=== PATIENT | male | born 1950 | race African-American/Black ===

== ENCOUNTER 2024-11-11 11:38 | Emergency (ER) | payer OTHER ==
[~2024-11-11] VITALS: Ht 182.9 cm; Wt 81.0 kg
[2024-11-11 11:44] VITALS: TEMP 37; O2SAT 96
[2024-11-11 12:09] LABS: BG BASE EXCESS 3.0 mmol/L (-2.0-3.0); BG CARBOXYHEMOGLOBIN 0.7 % (0.5-1.5); BG DEOXYHEMOGLOBIN 2.7 % (0.0-5.0); BG FLOW(L/min) 0 L/min; BG FRACTION INSPIRED OXYGEN 21; BG HCO3 ACT 27.8 mmol/L (21.0-28.0); BG METHEMOGLOBIN 0.0 % (0.5-1.5); BG OXYGEN SATURATION 97.3 % (94.0-98.0); BG OXYHEMOGLOBIN 96.6 % (94.0-98.0); BG PCO2 43.5 mmHg (35.0-48.0); BG PH 7.423 (7.350-7.450); BG PO2 94.0 mmHg (83.0-108.0); BG SAMPLE SITE RIGHT RADIAL; BG TOTAL HEMOGLOBIN 11.3 g/dL (13.5-17.5); BG VENT MODE ROOM AIR
[2024-11-11] MEDS: IOHEXOL-350 100 ML BOTTLE ONE (12:15)
[2024-11-11 12:22] LABS: BASOPHILS % 0.7 % (0.0-2.0); EOSINOPHILS % 4.1 % (0.0-5.0); HEMATOCRIT. 31.8 % (42.0-52.0); HEMOGLOBIN. 10.3 g/dL (14.0-18.0); LYMPHOCYTES % 32.9 % (20.0-50.0); MEAN PLATELET VOLUME 9.2 fl (7.4-10.4); MONOCYTES % 9.5 % (2.0-8.0); NEUTROPHILS % 52.8 % (40.0-76.0); PLATELET 132 x1000/uL (130-400); RED BLOOD CELL COUNT 3.47 mill/uL (4.7-6.1); RED CELL DISTRIBUTION WIDTH 13.0 % (11.6-14.6)
[2024-11-11 12:38] LABS: INR 1.0
[2024-11-11 12:40] LABS: CREATININE 0.9 mg/dL (0.6-1.3); ETHANOL BLOOD < 10 mg/dL (<10); TROPONIN I HIGH SENSITIVITY < 4 ng/L (3.0-53); UREA NITROGEN BLOOD 6 mg/dL (9-23)
[2024-11-11 12:42] LABS: ASPARTATE AMINOTRANSFERASE 12 IU/L (<34); BILIRUBIN DIRECT < 0.1 mg/dL (<=3.0); BILIRUBIN TOTAL 0.3 mg/dL (0.1-1.0); PROTEIN TOTAL 7.1 g/dL (6.0-8.3)
[2024-11-11 17:04] VITALS: BP 142/85; PULSE 58; RESP 16; O2SAT 100
== END 2024-11-11 17:48 | disposition short-term general hospital (02) ==
LOC: ER 11:45 → EDBD 11:45 → ER 17:48
DX: G93.41 Metabolic encephalopathy (principal); E11.9 Type 2 diabetes mellitus without complications; E72.20 Disorder of urea cycle metabolism, unspecified; I10 Essential (primary) hypertension; F03.90 Unspecified dementia, unspecified severity, without behavioral disturbance, psychotic disturbance, mood disturbance, and anxiety; E87.6 Hypokalemia; R06.02 Shortness of breath; Z79.899 Other long term (current) drug therapy
CPT/HCPCS: 80076; 80048; 82010; 80320; 82140; 82962; 83880; 84443; 85025; 85610; 85730; 84484; 36415; 71045; 70496; 70498; 70450; 82805; 82375; 93005; 99291; 36600; Q9967; G0480